=== PATIENT | female | born 1950 | race Native Hawaiian/Other Pacific Islander ===

== ENCOUNTER 2020-03-16 19:43 | Emergency (ER) | payer OTHER ==
[~2020-03-16] VITALS: Ht 162.6 cm; Wt 68.0 kg
[2020-03-16 20:28] LABS: PLATELET COUNT 239 K/uL (152-353)
[2020-03-16 20:31] LABS: POTASSIUM 3.3 mmol/L (3.6-5.2)
[2020-03-16 20:54] VITALS: BP 136/74; TEMP 99.1
[2020-03-16] MEDS ORDERED: NAMENDA5 MG PO (23:56)
[2020-03-16] MEDS ORDERED: THERA-M PO (23:59)
[2020-03-17] MEDS ORDERED: VITAMIN B-121000 MC2 PO
[2020-03-17] MEDS ORDERED: BUSP5TAB2 PO (00:01)
[2020-03-17] MEDS ORDERED: HALO1TAB3 PO ×2 (00:04→02:42)
[2020-03-17] MEDS ORDERED: SEROQUEL50 MG PO (00:05)
[2020-03-17] MEDS ORDERED: TRAZODONE HYDRO50 MG PO (00:07)
[2020-03-17] MEDS ORDERED: HYDR25CA25 PO (00:08)
[2020-03-17] MEDS ORDERED: DONEPEZIL HYDRO10 M1 PO ×2 (00:09→02:58)
[2020-03-17] MEDS ORDERED: BENZTROPINE0.5 MG PO (00:16)
== END 2020-03-16 20:55 | disposition still patient (30) ==
LOC: ED 19:43
PROVIDERS: Hospitalist
DX: F20.89 Other schizophrenia (principal); F03.91 Unspecified dementia, unspecified severity, with behavioral disturbance; Z11.59 Encounter for screening for other viral diseases; Z04.6 Encounter for general psychiatric examination, requested by authority
CPT/HCPCS: 80053; 85027; 87635; 93005; 99283; G2023; U0003